=== PATIENT | male | born 1990 | race Caucasian/White ===

== ENCOUNTER 2017-02-07 19:14 | Emergency (ER) | payer OTHER ==
[~2017-02-07] VITALS: Ht 175.3 cm; Wt 99.8 kg
[2017-02-07 19:15] VITALS: BP 179/82
--- NOTE | 2017-02-07 19:30 | PHYS DOC ---
General Chief Complaint: HAND PROBLEM Stated Complaint: HAND INJURY Time Seen by MD: 19:26 Source: patient Problems: History of Present Illness Allergies: Coded Allergies: No Known Drug Allergies (Unverified , 02/07/17) Past Medical History Medical History: no pertinent history Social History Smoker: quit less than 1 year Alcohol: occasionally Review of Systems Constitutional: no symptoms reported Musculoskeletal: see HPI Skin: no symptoms reported Psychiatric/Neurological: no symptoms reported Physical Exam General Appearance: WD/WN, no apparent distress Extremities: swelling, other Neurologic/Psychiatric: alert, normal mood/affect, oriented x 3 Skin: normal color Comments Generally this is a well-developed well-nourished white male in no acute distress. Vitals are as noted. Pertinent findings on physical exam shows the patient be moderately tender over the area of the thenar eminence of the right hand. There is no gross bony instability noted. He is mildly tender over the area of the snuffbox in the radial styloid on the right, but less so than tenderness over the thenar region. There is no gross bruising or signs of trauma. Has good full range of motion of the thumb with some discomfort over the thenar area. Capillary refill and sensation are intact. There are no radial , median, or ulnar nerve deficits noted to the hand, is good full flexion and extension with 5 over 5 strength in all sites. Refill and sensation remain intact. There is no other injuries noted. Remainder of physical exam is clinically unremarkable. Orders, Labs, Meds Patient here for right hand injury. 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 He says he has most of his pain where he landed over the thenar eminence of the hand. He complains of pain over the thenar eminence as well as the radial aspect of the right wrist. No distal complaints of weakness numbness or tingling in the fingers or thumb, though it does hurt when he moves his thumb around. There is no other injuries noted or reported. This happened about an hour prior to arrival in the ED. Patient done nothing for this prior to arrival in the ER and no fractures noted increase or decrease in symptoms she might have. Patient's past medical history is otherwise unremarkable. He just quit smoking. He is an occasional user of ethanol. X-rays of the right wrist and hand showed appears to be an old chip fracture off the distal aspect of the first metacarpal at the MCP joint. This appears to be well rounded not acute. X-rays of the wrist do show what appears to be a linear scaphoid fracture per the emergency physician. 1955 Patient resting comfortably in the ED. Discussed with the patient most likely diagnosis of scaphoid fracture. I did review the x-rays with him and he is able to visualize the fracture line. I discussed with him that at this time, the safest course factor B immobilization with a thumb spica splint. Last to follow-up with orthopedics in 5 days or so for recheck. At that time, they may re-x-ray the area and if they don't feel there is a fracture, they may disposed splint. However, if fracture is present. Patient voices understanding need conservative treatment at this time and I explained the need to do so to avoid arthritis and long-term problems. We'll go ahead and place a thumb spica splint at this time. Give some prescription at home for pain as well. He does voiced understanding need to follow up with orthopedics, and we'll make a referral to [facility]. He'll also follow-up with Worker's Compensation physician orthopedic referral as required by his work place. We discussed additional home care including rest, ice, elevation. He voices understanding need for orthopedic follow-up as well as to return to the ER sooner as needed if worsening anyway. He looks well, no acute discomfort or stress, okay for discharge home at this time. TERRA GIL MD Feb 07, 2017 19:30
--- NOTE | 2017-02-08 09:33 | RAD ---
Indication fall. Pain. AP oblique and lateral views of the right wrist were obtained. Similar imaging of the hand was obtained. AP oblique and lateral views were obtained. Views of the wrist appear unremarkable. No fracture is seen. A definite navicular fracture is not apparent on plain films. Imaging of the hand is also unremarkable. No fracture is seen. IMPRESSION: No acute bony finding seen involving the hand or wrist. If navicular pathology is strongly clinically suspect additional imaging may be warranted.
== END 2017-02-07 20:40 | disposition home or self-care (01) ==
LOC: EDBD 19:14 → ER 19:14
DX: S69.91XA Unspecified injury of right wrist, hand and finger(s), initial encounter (principal); Z87.891 Personal history of nicotine dependence; W19.XXXA Unspecified fall, initial encounter; Y93.89 Activity, other specified; Y92.89 Other specified places as the place of occurrence of the external cause; Y99.0 Civilian activity done for income or pay
CPT/HCPCS: 29125; 73110; 73130; 99284-25

== ENCOUNTER 2018-06-16 13:14 | Emergency (ER) | payer OTHER ==
[~2018-06-16] VITALS: Ht 175.3 cm; Wt 112.7 kg
--- NOTE | 2018-06-16 13:42 | PHYS DOC ---
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 He states that yesterday afternoon, there was an inmate who was self harming, by cutting his wrist, and in the process of escorting the patient to the [facility] where he can be evaluated the patient got blood on his forearm on the left, and right hand, on his intact skin. He has no open wounds. His employer sent him to the emergency department today for postexposure evaluation and blood testing. The patient states he is fully vaccinated, he suspects to hepatitis B as well, As he has been in the . He denies any complaints at this time. He did not get any eye exposure, oral exposure, or any exposure on open skin. Review of Systems Review of Systems Constitutional: Denies fever or chills [] Respiratory: Denies cough or shortness of breath [] Musculoskeletal: Denies back pain or joint pain [] Integument: Denies rash or skin lesions [] Neurologic: Denies headache, focal weakness or sensory changes [] Allergies Allergies Allergies Coded Allergies Type Severity Reaction Last Updated Verified No Known Drug Allergies 02/07/17 No Physical Exam Physical Exam PHYSICAL EXAM: HEENT: Atruamatic NECK: Supple, normal ROM, non-tender. CARDIAC: Regular Rate and Rhythm LUNGS: Clear Bilaterally EXTREMITIES: The skin of the forearms appears intact, as does the skin of the hands. There are no open wounds. Current Patient Data Vital Signs Vital Signs Date Time Temp Pulse Resp B/P (MAP) Pulse Ox O2 Delivery O2 Flow Rate FiO2 06/16/18 13:14 96 18 97 Room Air EKG EKG [] Radiology/Procedures Radiology/Procedures [] Course & Med Decision Making Course & Med Decision Making I discussed the low risk of infectious disease transmission based on the stated exposure. Per the patient's employer's request, baseline HIV and hepatitis testing will be obtained. Dragon Disclaimer Dragon Disclaimer This electronic medical record was generated, in whole or in part, using a voice recognition dictation system. Departure Departure: Impression: Primary Impression: Exposure to potentially hazardous body fluids Disposition: HOME, SELF-CARE Condition: STABLE Referrals: PCP,NO (PCP) Patient Instructions: Body Fluid Exposure YARI NELSON MD Jun 16, 2018 13:42
[2018-06-16 13:53] VITALS: BP 131/82
== END 2018-06-16 13:53 | disposition home or self-care (01) ==
LOC: ER 13:14
DX: Z77.21 Contact with and (suspected) exposure to potentially hazardous body fluids (principal)
CPT/HCPCS: 86703; 86705; 86709; 86803; 87340; 99284